=== PATIENT | female | born 1960 | race Caucasian/White ===

== ENCOUNTER 2018-06-26 21:38 | Inpatient (IN) ==
[2018-06-26] MEDS ORDERED: DUONEB (A & A) INH ONE ×3 (21:56→23:04)
[2018-06-26] MEDS ORDERED: SOLU-MEDROL IV ONE (21:56)
--- NOTE | 2018-06-26 22:14 | PROVIDER DOCUMENTATION ---
HPI-Respiratory General - General Chief Complaint: Shortness of Breath Stated Complaint: resp distress Time Seen by Provider: 06/26/18 21:47 Source: patient Allergies/Adverse Reactions: Patient Allergies Allergy/AdvReac Type Severity Reaction Status Date / Time sulfamethoxazole Allergy Intermediate SWELLING Verified 06/26/18 22:54 [From Bactrim] trimethoprim [From Bactrim] Allergy Intermediate SWELLING Verified 06/26/18 22: 54 Home Medications: Home Medication List Medication Instructions Recorded Confirmed Last Taken Type Levothyroxine [Synthroid] 300 microgm PO DAILY 08/09/13 02/28/18 08/27/17 History Sertraline [Zoloft] 50 mg PO QHS 08/22/13 02/28/18 08/27/17 History PRAVAstatin [Pravachol] 20 mg PO QHS 01/01/14 02/28/18 08/27/17 History Gabapentin 600 mg PO TID 05/18/17 02/28/18 08/27/17 History Metformin [Glucophage] 850 mg PO DAILY 08/28/17 02/28/18 08/27/17 History Levofloxacin [Levaquin] 500 mg PO DAILY #5 tab 03/02/18 Unknown Rx Methylprednisolone [Medrol Dosepak] 4 mg PO DIRECTED #1 pkg 03/02/18 Unknown Rx Nicotine Patch [Nicoderm Patch] 21 mg TD DAILY PRN PRN patch.td24 03/02/18 Unknown Rx Omeprazole [Prilosec] 20 mg PO BID #28 cap 03/02/18 Unknown Rx Tiotropium [place] Inhaler 1 puff INH DAILY #1 inhaler 03/02/18 Unknown Rx [Spiriva] - History of Present Illness-Resp Nature of Presenting Problem: reports resp distress for 5 days. worsening today. histoy of copd. admits she has been having rhinorrhea, nasal congestion, cough with productive sputum. and feeling chills. sob. no chest pain. no abd pain. no extremities pain. no fever. Review of Systems - Adult - REVIEW OF SYSTEMS - ADULT Constitutional: reports: see HPI Eyes: reports: no symptoms reported Ears, Nose, Mouth & Throat: reports: no symptoms reported Cardiovascular: reports: no symptoms reported Respiratory: reports: no symptoms reported Gastrointestinal: reports: no symptoms reported Genitourinary: reports: no symptoms reported Musculoskeletal: reports: no symptoms reported Integumentary: reports: no symptoms reported Neurological: reports: no symptoms reported Psychiatric: reports: no symptoms reported Endocrine: reports: no symptoms reported Hematologic/Lymphatic: reports: no symptoms reported Allergic/Immunologic: reports: no symptoms reported All Other Systems: Reviewed and Negative Past History - Adult - PAST MEDICAL HISTORY-ADULT Review of Records: reports: Old Records Reviewed, Nursing Assessment Review, Medications Reviewed, Social history reviewed & non-contributory. Major Childhood Illnesses: reports: denies history Cardiovascular: reports: hyperlipidemia Respiratory: reports: asthma, COPD Gastrointestinal: reports: Crohn's, GERD Obstetrical/Gynecological: reports: denies history Genitourinary: reports: denies history Musculoskeletal: reports: denies history Neurological: reports: denies history Psychiatric: reports: depression Endocrine/Immune: reports: thyroid disorder Other Conditions: reports: denies history - PRIOR SURGERIES/PROCEDURES Surgical/Procedure History: reports: appendectomy, cholecystectomy, hysterectomy , BTL, tonsillectomy, bowel surgery, other - IMMUNIZATION STATUS Childhood Immunizations: See Nurse Assessment Flu Vaccine: See Nurse Assessment - FAMILY HISTORY Family History: reviewed, not pertinent - SOCIAL HISTORY Smoking: less than 1 pack/day Provider spent 3-5 mins advising pt. on dangers of tobacco.: Discussed manners to quit use, and f/u contacts for add'l counseling. Substance Use: none/never Alcohol Use Frequency: never Living Situation: alone Physical Exam-General - PHYSICAL EXAM-ADULT Initial Vital Signs Reviewed: Yes - CONSTITUTIONAL General Appearance: alert, severe distress, obese - EYES Eyes: PERRL/EOMI, pink conjunctivae - HEAD, EARS, NOSE, MOUTH & THROAT HENMT: normocephalic/atraumatic, moist mucous membranes - NECK Neck: non-tender, full range of motion - RESPIRATORY Respiratory: accessory muscle use (pursed lips), wheezing, prolonged expiration , retractions - CARDIOVASCULAR Cardiovascular: normal peripheral pulses, tachycardia - GASTROINTESTINAL (ABDOMEN) Abdominal Exam: normal bowel sounds, non tender, soft - MUSCULOSKELETAL Back Exam: normal inspection, no CVA tenderness, no vertebral tenderness Extremity: normal range of motion, non-tender, normal gait - SKIN Integumentary: warm/dry - NEUROLOGIC Neurologic: grossly normal - PSYCHIATRIC Psych/Mental Status: normal thought content, normal thought process, oriented x 3 Progress - PLAN OF CARE/RESULTS Progress/Plan/Lab Results: Vital Signs - 8 hr 06/26/18 22:00 06/26/18 22:15 06/26/18 23:15 Temperature 97.9 F Pulse Rate 88 87 87 Respiratory Rate 16 23 23 Blood Pressure 141/77 O2 Sat by Pulse Oximetry 91 L 92 L Laboratory Results - last 24 hr 06/26/18 06/26/18 06/26/18 22:35 23:25 23:25 WBC 15.58 H RBC 4.93 Hgb 14.9 Hct 46.7 MCV 94.7 MCH 30.2 MCHC 31.9 L RDW Std Deviation 15.2 H Plt Count 298 MPV 11.3 H Immature Gran % (Auto) 0.4 Neut % (Auto) 70.9 Lymph % (Auto) 19.6 L Coal % (Auto) 8.7 Eos % (Auto) 0.1 Baso % (Auto) 0.3 Immature Gran # (Auto) 0.06 H Neut # (Auto) 11.05 H Lymph # (Auto) 3.05 Coal # (Auto) 1.36 H Eos # (Auto) 0.02 Baso # (Auto) 0.04 PT INR PTT (Actin FS) Specimen Type ARTERIAL Sample Site R RADIAL pH 7.37 pCO2 71 H* pO2 50 L HCO3 34.1 H Base Excess 12.3 H Oxyhemoglobin 83.6 L* ABG O2 Sat (Calculated) 16.7 ABG O2 Saturation 88.3 L ABG Carboxyhemoglobin 5.10 H* ABG Methemoglobin 0.2 Amilcar Test YES A-a O2 Difference 61.0 Total Hemoglobin 14.2 Lactate 1.40 Liter Flow 2.0 Blood Gas Modality CANNULA FiO2 % 28.0 Sodium 137 Potassium 3.9 Chloride 88 L Carbon Dioxide 45 H Anion Gap 4 BUN 22 Creatinine 1.1 H Estimated GFR/1.73 m2 52 BUN/Creatinine Ratio 20 Glucose 124 H Calculated Osmolality 279 Calcium 11.1 H Total Bilirubin 0.26 AST 52 H ALT 36 Alkaline Phosphatase 85 Creatine Kinase 1160 H Creatine Kinase Index 1.9 CK-MB (CK-2) 22.00 H Troponin T Rux-G-Tsrpaofmdck Pept Total Protein 8.3 Albumin 5.1 H Globulin 3.2 Albumin/Globulin Ratio 1.6 06/26/18 06/26/18 06/26/18 23:25 23:25 23:25 WBC RBC Hgb Hct MCV MCH MCHC RDW Std Deviation Plt Count MPV Immature Gran % (Auto) Neut % (Auto) Lymph % (Auto) Coal % (Auto) Eos % (Auto) Baso % (Auto) Immature Gran # (Auto) Neut # (Auto) Lymph # (Auto) Coal # (Auto) Eos # (Auto) Baso # (Auto) PT 11.4 INR 0.77 PTT (Actin FS) 28.0 Specimen Type Sample Site pH pCO2 pO2 HCO3 Base Excess Oxyhemoglobin ABG O2 Sat (Calculated) ABG O2 Saturation ABG Carboxyhemoglobin ABG Methemoglobin Amilcar Test A-a O2 Difference Total Hemoglobin Lactate Liter Flow Blood Gas Modality FiO2 % Sodium Potassium Chloride Carbon Dioxide Anion Gap BUN Creatinine Estimated GFR/1.73 m2 BUN/Creatinine Ratio Glucose Calculated Osmolality Calcium Total Bilirubin AST ALT Alkaline Phosphatase Creatine Kinase Creatine Kinase Index CK-MB (CK-2) Troponin T < 0.010 Wkt-[id number]-[id number] Pept 58 Total Protein Albumin Globulin Albumin/Globulin Ratio Orders Category Date Time Status Cardiac Monitoring DIRECTED Care 06/26/18 21:50 Active Oxygen Therapy- ED Nursing DIRECTED Care 06/26/18 21:50 Active Saline Loc NOW Care 06/26/18 21:50 Active CHEST-2 VIEWS [RAD] Stat Exams 06/26/18 21:50 Taken ABG [RESP] Routine Lab 06/26/18 22:35 Completed CBC WITH ELECTRONIC DIFF [HEME] Stat Lab 06/26/18 23:25 Completed CK PROFILE [SP CHEM] Stat Lab 06/26/18 23:25 Completed COMPREHENSIVE METABOLIC PANEL [CHEM] Stat Lab 06/26/18 23:25 Completed PRO B-NATRIURETIC PEPTIDE Stat Lab 06/26/18 23:25 Completed PROTIME WITH INR [COAG] Stat Lab 06/26/18 23:25 Completed PTT [COAG] Stat Lab 06/26/18 23:25 Completed TROPONIN T Stat Lab 06/26/18 23:25 Completed Albuterol 2.5MG/Ipratrop 0.5MG [Duoneb (A & A)] Med 06/26/18 21:56 Discontinued 3 ml INH NOW ONE Albuterol 2.5MG/Ipratrop 0.5MG [Duoneb (A & A)] Med 06/26/18 22:09 Discontinued 3 ml INH NOW ONE Albuterol 2.5MG/Ipratrop 0.5MG [Duoneb (A & A)] Med 06/26/18 23:04 Discontinued 3 ml INH NOW ONE Levofloxacin 750 mg/D5w [Levaquin 750 mg/D5w] Med 06/26/18 23:29 Discontinued 750 mg in 150 ml IV NOW Methylprednisolone Sod Succ [Solu-Medrol] Med 06/26/18 21:56 Discontinued 80 mg IV NOW ONE Aerosol Treatments Routine Oth 06/26/18 21:56 Completed Aerosol Treatments Routine Oth 06/26/18 22:09 Completed Aerosol Treatments Routine Oth 06/26/18 23:04 Completed Aerosol Treatments Stat Oth 06/26/18 21:56 Completed Aerosol Treatments Stat Oth 06/26/18 22:09 Completed Aerosol Treatments Stat Oth 06/26/18 23:04 Completed BIPAP Stat Oth 06/26/18 22:57 Active CP/SOB/Palp >45 yrs of Age Stat Oth 06/26/18 21:50 Ordered EKG [EKG] Stat Ther 06/26/18 21:50 Ordered Result Diagrams: 06/26/18 23:25 06/26/18 23:25 - EKG 1 Time of EKG reading by physician:: 23:30 EKG Read and Signed by:: Maliha Jeronimo EKG Interpretation (*Must complete 3 of following elements*): Normal Rate: 82 Rhythm: nsr [place]: normal QRS: normal, other (low voltage qrs) [place] Interval: normal ST Wave: normal - CONSULTS/PCP/HOSPITALIST Notification #1 *Consult/PCP/Hospitalist*: Dr. Magallon Time Discussed: 01:25 (copd exac, elevated ck, acute renal failue.) Consult Disposition: Admit Departure - Departure Date of Disposition Decision: 06/26/18 Time of Disposition Decision: 01:26 DIAGNOSIS: Tobacco use disorder, COPD exacerbation, Acute kidney failure, Elevated CK Disposition: ADMITTED INPATIENT 09 Certified Medical Emergency: Emergent Condition: Stable Referrals and Follow-Ups: Richardson Bianchi MD [Primary Care Provider] - Discharge Education: Steps to Quit Smoking, [id number] - Critical Care Note This patient required my direct & personal management of CC.: No Attestation - Physician/ BEATRIZ Attestation Patient care was provided by Advanced Practice Provider:: No The physician spent face to face time with patient:: Yes Advanced Practice Provider documentation review:: Supervising physician onsite and consulted in the evaluation and care of this patient. The physician did have a face to face encounter with the patient.
[2018-06-26 22:44] LABS: ALLEN TEST YES; BE 12.3 mmoll (-3.0-3.0); BLOOD TYPE ARTERIAL; HCO3-(ACT) 34.1 mmoll (20.0-26.0); METHB 0.2 % (0.0-1.5); O2(CT) 16.7 mL/dL (15.0-23.0); PO2(98.6) 50 mmHg (60-100); SAMPLE BLOOD; SAO2 88.3 % (95.0-100.0); THB 14.2 g/dL (11.5-17.4); pH(98.6) 7.37 (7.35-7.45)
[2018-06-26 22:45] LABS: MODALITY CANNULA; O2HB 83.6 % (95.0-99.0); PCO2(98.6) 71 mmHg (35-45)
[2018-06-26] MEDS ORDERED: LEVAQUIN 750 MG/D5W 750 MG/150 ML IVPB IV ONE (23:29)
[2018-06-27 00:14] LABS: BASO# 0.04 X1000 (0.0-0.2); BASO% 0.3 % (0.0-0.8); EOS# 0.02 X1000 (0.0-0.7); EOS% 0.1 % (0.0-10.0); HEMATOCRIT 46.7 % (37.0-47.0); HEMOGLOBIN 14.9 g/dL (12.0-16.0); IMM GRAN# 0.06 X1000 (0.0-0.04); IMM GRAN% 0.4 % (0.0-0.5); LYMPH# 3.05 X1000 (1.2-3.4); LYMPH% 19.6 % (20.5-51.1); MCH 30.2 PG (27-31); MCHC 31.9 g/dL (33-37); MCV 94.7 FL (81-99); MONO# 1.36 X1000 (0.11-0.59); MONO% 8.7 % (1.7-9.3); MPV 11.3 FL (7.4-10.4); NEUT# 11.05 X1000 (1.4-6.5); NEUT% 70.9 % (42.2-75.2); PLT 298 X1000 (130-400); RBC 4.93 XMIL (4.2-5.4); RDW 15.2 % (11.5-14.5); WBC 15.58 X1000 (4.8-10.8)
[2018-06-27 00:25] LABS: PROTIME 11.4 Seconds (11.0-16.0)
[2018-06-27 00:34] LABS: ALB/GLOB RATIO 1.6; ALBUMIN 5.1 g/dL (3.5-5.0); CALCIUM 11.1 mg/dL (8.8-10.2); CREATININE 1.1 mg/dL (0.5-0.9); INR 0.77; POTASSIUM 3.9 mmol/L (3.5-5.1); TOTAL BILIRUBIN 0.26 mg/dL (0.20-1.00); TOTAL PROTEIN 8.3 g/dL (6.3-8.3)
[2018-06-27 00:49] LABS: CK INDEX 1.9 (0.0-2.5)
[2018-06-27 05:47] LABS: ALLEN TEST YES; BE 9.7 mmoll (-3.0-3.0); BLOOD TYPE ARTERIAL; HCO3-(ACT) 32.3 mmoll (20.0-26.0); METHB 0.5 % (0.0-1.5); O2(CT) 18.5 mL/dL (15.0-23.0); O2HB 90.8 % (95.0-99.0); PO2(98.6) 64 mmHg (60-100); SAMPLE BLOOD; SAO2 92.9 % (95.0-100.0); THB 14.5 g/dL (11.5-17.4); pH(98.6) 7.33 (7.35-7.45)
[2018-06-27 05:49] LABS: MODALITY BI PAP
[2018-06-27 05:52] LABS: PCO2(98.6) 74 mmHg (35-45)
--- NOTE | 2018-06-27 06:07 | Diag Imaging Result Doc PS360 ---
EXAM: CT ANGIOGRM PULMONARY ARTERIES HISTORY: Dsypnea,Hypoxia TECHNIQUE: CT chest with intravenous contrast. Pulmonary arterial protocol with MIP images. COMPARISON: 08/28/2017 FINDINGS: There is suboptimal opacification of the pulmonary arteries. However, there are no large central filling defects in the pulmonary arteries or their proximal branches. No thoracic aortic aneurysm or dissection. No cardiomegaly. No pleural effusions. There are small mediastinal nodes. Several right hilar and subcarinal lymph nodes are calcified and there are scattered granuloma. There is an irregular right upper lobe nodule measuring approximately 11 x 15 mm. This has an appearance similar to the prior exam. Mild emphysematous changes are present in the upper lungs. No consolidation. Tiny infiltrates or atelectasis in the lower lungs. Limited images through the upper abdomen reveal an enlarged liver with fatty infiltration. IMPRESSION: 1.Stable right upper lobe nodule 2.There is evidence of a prior granulomatous infection. Minimal basilar atelectasis versus tiny infiltrates. 3.Mild emphysema 4.Hepatomegaly with fatty infiltration 5.No pulmonary emboli 6.A preliminary report was given at 4:42 AM This exam was performed using automated exposure control, adjustment of mA or kV according to patient size, and/or use of iterative reconstruction technique. Electronically signed by Karl Wheeler 06/27/2018 6:05 AM
[2018-06-27] MEDS ORDERED: DUONEB (A & A) INH PRN (06:12)
[2018-06-27] MEDS ORDERED: TYLENOL PO PRN (06:12)
[2018-06-27] MEDS ORDERED: ZOFRAN IV PRN (06:12)
[2018-06-27] MEDS: ZOSYN 3.375 GM in NS 50 ML IV SCH ×4 (06:20→19:19)
--- NOTE | 2018-06-27 06:56 | EKG Report ---
Test Performed on : 06/26/2018 11:27:22 PM Test Reason : copd Blood Pressure : / mmHG Vent. Rate : 082 BPM Atrial Rate : 082 BPM P-R Int : 136 ms QRS Dur : 090 ms QT Int : 394 ms P-R-T Axes : 070 -23 086 degrees QTc Int : 460 ms Normal sinus rhythm. Low voltage QRS Cannot rule out Anterior infarct , age undetermined Abnormal ECG When compared with ECG of 28-FEB-2018 14:01, ST no longer depressed in Inferior leads Nonspecific T wave abnormality, worse in Lateral leads Unconfirmed Result
[2018-06-27] MEDS: HUMALOG SUBQ SCH ×4 (07:00→21:27)
[2018-06-27] MEDS: DUONEB (A & A) INH SCH ×5 (07:15→23:30)
--- NOTE | 2018-06-27 07:18 | Diag Imaging Result Doc PS360 ---
EXAM: CHEST-2 VIEWS HISTORY: copd TECHNIQUE: Chest two views COMPARISON: 02/28/2018 FINDINGS: The lungs are well expanded. The heart is not enlarged. The vessels are not distended. There are no infiltrates. No pleural effusions. There is a granuloma in the lower right lung. IMPRESSION: No acute abnormality. Electronically signed by Karl Wheeler 06/27/2018 7:15 AM
[2018-06-27 07:26] LABS: HEMOGLOBIN A1C 6.1 % (4.8-6.0)
[2018-06-27] MEDS ORDERED: SYNTHROID PO ONE (08:53)
[2018-06-27] MEDS: LOVENOX SUBQ SCH (09:50)
[2018-06-27 09:55] LABS: CALCIUM 9.8 mg/dL (8.8-10.2); POTASSIUM 5.4 mmol/L (3.5-5.1)
[2018-06-27 10:25] LABS: CK INDEX 2.1 (0.0-2.5); CK-MB 26.98 ng/mL (0.0-5.0)
--- NOTE | 2018-06-27 12:48 | HISTORY AND PHYSICAL ---
PRIMARY CARE PHYSICIAN: Previously Dr. Richardson Bianchi, though the patient has recently switched, from what I understand, is Dr. Browne, though has not had her initial appointment with her as of yet. DATE AND TIME: 06/27/2018 AT 0300. CHIEF COMPLAINT: Shortness of breath. HISTORY OF PRESENT ILLNESS: Ms. Ko is a 57-year-old obese female who presented to the ER today with worsening shortness of breath for approximately 5 days which did become much worse today. The patient does have a history of COPD and is oxygen dependent on home oxygen with nasal cannula at 2 L. She does report that she has had some rhinorrhea, nasal congestion, a productive cough with yellow to white thick colored sputum. She also reports that she has had some chills. Also with her worsening shortness of breath, she has had some episodes of dizziness and feeling lightheaded. The patient reports that she is having to prop up to sleep at night and has been waking up short of breath. She also reports that she has been having difficulty sleeping and only sleeps approximately 2 hours at a time. She does report some swelling in her bilateral arms and legs, though the patient does not have any pitting edema noted at this time. She denies any chest pain, nausea, vomiting, or diarrhea. She denies any dysuria or urinary frequency. Upon evaluation in the ER, she was noted to have some leukocytosis with white blood cell count of 15,580. She was also noted to have some hypercapnia with her pCO2 on her arterial blood gases being 71 with a pO2 of 50 and an O2 saturation of 88.3. The patient's carboxyhemoglobin was also elevated at 5.1, though she does report at this time that she does smoke 1/2 pack per day. The patient was given DuoNeb treatments, IV Solu Medrol and IV Levaquin in the ER. Chest x-ray did show no acute abnormality, though given her symptoms, we did decide to do a pulmonary arteriogram which did show that she had a stable right upper lobe nodule. She did have minimal basilar atelectasis versus tiny infiltrates as well as hepatomegaly and fatty infiltration of the liver. Given these findings, the patient will be admitted for COPD exacerbation, hypercapnic respiratory failure and pneumonia. REVIEW OF SYSTEMS: A 14-point review of systems was conducted with the patient, and all were negative except for pertinent positives mentioned in the above HPI. PAST MEDICAL HISTORY: 1. Hyperlipidemia. 2. Questionable history of diabetes mellitus. 3. COPD, oxygen dependent, on home O2 with nasal cannula at 2 L. 4. Asthma. 5. Crohn's disease. 6. Gastroesophageal reflux disease. 7. Depression. 8. Hypothyroidism. 9. Restless leg syndrome. PAST SURGICAL HISTORY: 1. Appendectomy. 2. Cholecystectomy. 3. Hysterectomy. 4. Bilateral tubal ligation. 5. Partial colectomy. 6. Right breast biopsy. 7. Thyroidectomy. FAMILY HISTORY: Positive for her mother having a history of COPD and congestive heart failure. Her father had COPD and pancreatic cancer. She does have 2 sisters and 1 brother, all 3 of which have diabetes mellitus, though her brother does have a history of heart disease and colon cancer. SOCIAL HISTORY: The patient states that she currently lives alone. She is disabled secondary to her COPD. She denied any alcohol or illicit drug use, though does have a longstanding history of greater than 40 years of nicotine dependency. She did previously smoke a pack of cigarettes a day, though states she has cut this back to 1/2 pack per day. ALLERGIES: The patient has allergies to Bactrim. HOME MEDICATIONS: We are awaiting the patient's home medications to be updated and verified. The patient is unable to do so. We will try to contact her pharmacy to get an accurate medication list. DIAGNOSTIC DATA: White blood cell count is 15,580, hemoglobin 14.9, hematocrit 46.7, platelet count is 298. PT is 11.4. INR is 0.77. PTT is 28. Sodium is 137, potassium 3.9, chloride 88, serum bicarb is 45, BUN is 22, creatinine 1.1, with a GFR of 52, glucose 124, calcium 11.1. Liver function tests are within normal limits except for AST slightly elevated at 52. CK was 1160. CK index was 1.9. CKMB is 22. Troponin is less than 0.01. ProBNP is 58. Arterial blood gases were obtained on nasal cannula at 28% FiO2 and had a pH of 7.37, pCO2 of 71, pO2 of 50, HCO3 of 34.1 with a base excess of 12.3, oxyhemoglobin was 83.6 with an O2 saturation of 88.3 and a carboxyhemoglobin of 5.10. EKG showed normal sinus rhythm at a rate of 82 with a QTC of 460. Chest x-ray showed no acute abnormality. CT angiogram of pulmonary artery showed a stable right upper lobe nodule. There was evidence of prior granulomatous infection. There was also minimal basilar atelectasis versus tiny infiltrates. Mild emphysema. Hepatomegaly with fatty infiltration. There was no pulmonary emboli noted. PHYSICAL EXAMINATION: VITAL SIGNS: Temperature is 97.9, heart rate 73, respirations 20, blood pressure 144/68, oxygen saturation is 95% on BiPAP at 50% FiO2. GENERAL: Ms. Ko is an obese female. Upon my examination, she was sitting on the ER stretcher. At this time, she did not have her BiPAP on and did appear to be slightly dyspneic as well as slightly tachypneic, though she was able to speak in full sentences and answer questions. Though she is somewhat of a poor historian, she was able to answer questions appropriately and follow commands. HEENT: Head is atraumatic and normocephalic. Pupils are equal, round and reactive to light, were 3 mm bilaterally and brisk. Oral mucosa was moist. Oropharynx was clear. NECK: Supple. Trachea midline. No overt JVD noted. CARDIOVASCULAR: The patient has S1 and S2 present. No murmurs, gallops or rubs appreciated, with a regular rate and rhythm. PULMONARY: The patient has symmetrical chest expansion bilaterally, though she does have diminished lung sounds noted in bilateral full hurtado. She sounds very tight and did have expiratory wheeze noted. ABDOMEN: Soft, did appear a little distended, though the patient does have a protuberant abdomen noted. She was nontender upon palpation. Bowel sounds were present in all 4 quadrants and were normoactive. EXTREMITIES: No cyanosis or edema noted. The patient did have clubbing noted to nail beds of bilateral hands. Pulse, motor and sensory were intact in all extremities. Radial pulses and pedal pulses were 2+ bilaterally. Capillary refill was less than 3. INTEGUMENTARY: The patient's skin was pink, warm and dry. NEUROLOGICAL: The patient was alert and oriented to person, place, time and situation. There were no focal neurological deficits noted. ASSESSMENT AND PLAN: 1. Acute hypercapnic and hypoxemic respiratory failure. This is likely secondary to a combination of COPD exacerbation, possible pneumonia and obesity hypoventilation syndrome. The patient has been placed on BiPAP at this time, and her respiratory status is improving. We will recheck an arterial blood gas later on this morning. She will be on continuous pulse oximetry, and we will monitor her respiratory status closely. 2. Chronic obstructive pulmonary disease exacerbation. The patient is normally oxygen dependent at home with nasal cannula at 2 L, though at this time, as previously mentioned, we have placed her on BiPAP. We will continue her on scheduled DuoNeb treatments q.4 hours as well as aggressive pulmonary toilet, incentive spirometry, and IV Solu Medrol 40 mg q.12 hours, and we will continue to follow. 3. Possible pneumonia. The patient did have leukocytosis. She has been reporting productive cough with yellow to whitish thick colored sputum as well as chills. CT angiogram of pulmonary arteries did show minimal basilar atelectasis versus tiny infiltrates. Given this, we have obtained blood cultures and sputum culture and have placed her with antibiotic coverage of Zosyn. We will continue to follow. 4. Obesity hypoventilation syndrome. 5. History of hypothyroidism. We have placed a request for the patient's home medications to be reconciled. We are awaiting this at this time. Once we have obtained her levothyroxine dosage, we will continue this. We have ordered a TSH as well. 6. Questionable history of diabetes mellitus. The patient denies that she has diabetes, though it looks as though she was previously taking metformin in the past. We have ordered a hemoglobin A1c as well as pattern fingerstick blood sugars. She will be receiving IV steroids, and given this, we have placed an order for Lispro insulin per low dose sliding scale if needed. 7. DVT prophylaxis will be provided with Lovenox 40 mg subcutaneously q.24 hours. 8. Nicotine dependence. We did discuss for several minutes with the patient the importance of her needing to quit smoking given her history of COPD as well as her current respiratory status. The patient did state her verbal understanding, and we will continue to pastoral counselor the patient on this during her admission and upon discharge. 9. Possible sleep apnea. The patient has been reporting respiratory symptoms at night as well as sleep disturbances. If possible, the patient may need to be set up for outpatient sleep study upon discharge. The patient has been placed on the Medical Floor with telemetry. She will have vital signs q.4 hours. We will do continuous pulse oximetry. We will do strict intake and output. We will repeat BMP later on this morning. We will also continue with a series of cardiac enzymes given that the patient's CK was elevated, though she is denying any chest pain at this time. Further orders and recommendations pending hospital course, diagnostic studies and physician evaluation. Dictated by GIUSEPPE Yi for Cole Cervantes MD cc: Cole Cervantes MD [facility]
[2018-06-27] MEDS: PERCOCET-5 PO PRN (15:04)
[2018-06-27 15:09] LABS: ALLEN TEST YES; BE 11.2 mmoll (-3.0-3.0); BLOOD TYPE ARTERIAL; HCO3-(ACT) 33.4 mmoll (20.0-26.0); METHB 0.9 % (0.0-1.5); O2(CT) 16.4 mL/dL (15.0-23.0); SAMPLE BLOOD; SAO2 89.2 % (95.0-100.0); THB 13.4 g/dL (11.5-17.4); pH(98.6) 7.43 (7.35-7.45)
[2018-06-27] MEDS: SOLU-MEDROL IV SCH ×3 (15:11→23:42)
[2018-06-27 15:15] LABS: MODALITY CANNULA; O2HB 87.3 % (95.0-99.0); PCO2(98.6) 57 mmHg (35-45); PO2(98.6) 47 mmHg (60-100)
[2018-06-27 16:32] LABS: CK-MB 38.82 ng/mL (0.0-5.0)
--- NOTE | 2018-06-27 23:55 | PULMONOLOGY CONSULTATION ---
DATE: 06/27/2018 REQUESTING PHYSICIAN: Dr. Michelle. REASON FOR CONSULTATION: COPD. HISTORY OF PRESENT ILLNESS: Ms. Ko is a 57-year-old white female with obesity, COPD, continued tobacco use, who reports over the last 5 days she has had increased cough, increased sinus drainage, increasing wheezing, with increasing shortness of breath. She may have had chills or fevers, but not to the point that she checked her temperature. Her dyspnea became severe, and she presented to the emergency room. White blood count was elevated and CT pulmonary angiogram was performed, which revealed a stable nodule in the right upper lobe, which has been present since July 2017, emphysematous changes, fatty liver. Due to the shortness of breath despite treatment in the emergency room, the patient was admitted to the hospital. PAST MEDICAL HISTORY/PROBLEM LIST: 1. Morbid obesity. 2. COPD. 3. Ongoing tobacco use. 4. Status post bowel resection for presumed Crohn's disease. 5. History of depression. 6. Hypothyroidism. 7. Gastroesophageal reflux disease. 8. Status post appendectomy. 9. Status post cholecystectomy. 10. Status post biopsy of the right breast, which she reports was benign. 11. Status post bilateral tubal ligation. 12. Status post hysterectomy. SOCIAL HISTORY: The patient lives by herself. She continues to smoke, but reports she is cutting back. Denies alcohol use. FAMILY HISTORY: Positive for heart failure, pancreatic cancer, COPD, diabetes mellitus, heart disease, and colon cancer. REVIEW OF SYSTEMS: As noted in the HPI. PHYSICAL EXAMINATION: General: Reveals an obese white female, with audible rhonchi and wheezing. Vital Signs: Heart rate 73, respiratory rate 18, with mild increased work of breathing. Oxygen saturation 95% on 4 L per nasal cannula. HEENT: Pupils are equal and reactive. Oropharynx is clear. Neck: Supple. Chest: Reveals diffuse wheezing bilaterally. Cardiac: S1-S2. Abdomen: Obese and soft. Extremities: Revealed trace edema. LABORATORIES: CT scan as per HPI. Arterial blood gas reveals pH 7.43, pCO2 of 57, PO2 of 47. Sodium 137, potassium 5.6, chloride 89, bicarbonate 33, BUN 20, creatinine 1.0. TSH markedly elevated at 107. IMPRESSION: 1. A 59-year-old with chronic obstructive pulmonary disease. 2. Chronic obstructive pulmonary disease exacerbation. 3. Acute hypoxemic respiratory failure. 4. Chronic hypercapnic respiratory failure. 5. Status post thyroidectomy, with probable noncompliance with thyroid medicine. RECOMMENDATIONS: 1. Continue oxygen for hypoxemic respiratory failure. Can cycle BiPAP as needed, and at bedtime. 2. Agree with steroids and antibiotics as you are doing. 3. Agree with thyroid replacement. 4. Smoking cessation was discussed at length with the patient. She reports she will quit, and will not restart smoking when she returns home. cc: Lawson Bell MD
[2018-06-28] MEDS: ZOSYN 3.375 GM in NS 50 ML IV SCH ×4 (00:35→17:00)
[2018-06-28 01:09] LABS: CK INDEX 1.8 (0.0-2.5); CK-MB 56.34 ng/mL (0.0-5.0)
[2018-06-28] MEDS: DUONEB (A & A) INH SCH ×7 (03:58→23:15)
[2018-06-28 04:19] LABS: ALLEN TEST YES; BE 11.3 mmoll (-3.0-3.0); BLOOD TYPE ARTERIAL; HCO3-(ACT) 33.7 mmoll (20.0-26.0); METHB 0.8 % (0.0-1.5); O2(CT) 19.1 mL/dL (15.0-23.0); O2HB 96.7 % (95.0-99.0); PO2(98.6) 234 mmHg (60-100); SAMPLE BLOOD; SAO2 97.7 % (95.0-100.0); THB 13.7 g/dL (11.5-17.4); pH(98.6) 7.26 (7.35-7.45)
[2018-06-28 04:27] LABS: PCO2(98.6) 95 mmHg (35-45)
[2018-06-28 04:28] LABS: MODALITY BI PAP
[2018-06-28] MEDS: LOVENOX SUBQ SCH (05:39)
[2018-06-28] MEDS: HUMALOG SUBQ SCH ×4 (06:13→21:13)
[2018-06-28] MEDS: SYNTHROID PO SCH (06:14)
[2018-06-28] MEDS: PROTONIX IV SCH (06:14)
[2018-06-28] MEDS: SODIUM CHLORIDE 0.9% INJ SCH (06:14)
--- NOTE | 2018-06-28 07:05 | Diag Imaging Result Doc PS360 ---
EXAM: CHEST-PORTABLE HISTORY: dyspnea TECHNIQUE: Portable chest single view COMPARISON: 06/26/2018 FINDINGS: The lungs are well expanded. The heart is not enlarged. The vessels are not distended. There are no infiltrates. No effusion identified. There is a calcified granuloma in the lower right lung. IMPRESSION: No interval change. Electronically signed by Karl Wheeler 06/28/2018 7:02 AM
[2018-06-28 07:42] LABS: BASO# 0.01 X1000 (0.0-0.2); BASO% 0.1 % (0.0-0.8); EOS# 0.05 X1000 (0.0-0.7); EOS% 0.4 % (0.0-10.0); HEMATOCRIT 43.8 % (37.0-47.0); HEMOGLOBIN 13.5 g/dL (12.0-16.0); IMM GRAN# 0.08 X1000 (0.0-0.04); IMM GRAN% 0.6 % (0.0-0.5); LYMPH# 1.41 X1000 (1.2-3.4); LYMPH% 9.9 % (20.5-51.1); MCH 30.1 PG (27-31); MCHC 30.8 g/dL (33-37); MCV 97.6 FL (81-99); MONO# 0.49 X1000 (0.11-0.59); MONO% 3.4 % (1.7-9.3); MPV 11.1 FL (7.4-10.4); NEUT% 85.6 % (42.2-75.2); PLT 293 X1000 (130-400); RBC 4.49 XMIL (4.2-5.4); RDW 15.2 % (11.5-14.5); WBC 14.24 X1000 (4.8-10.8)
[2018-06-28 08:03] LABS: CALCIUM 9.5 mg/dL (8.8-10.2); CREATININE 1.2 mg/dL (0.5-0.9); POTASSIUM 5.3 mmol/L (3.5-5.1)
[2018-06-28 08:29] LABS: ALLEN TEST YES; BE 12.5 mmoll (-3.0-3.0); BLOOD TYPE ARTERIAL; HCO3-(ACT) 34.7 mmoll (20.0-26.0); METHB 0.4 % (0.0-1.5); O2(CT) 19.1 mL/dL (15.0-23.0); O2HB 97.2 % (95.0-99.0); PO2(98.6) 151 mmHg (60-100); SAMPLE BLOOD; SAO2 97.2 % (95.0-100.0); SRATE 20 BPM; THB 13.8 g/dL (11.5-17.4); pH(98.6) 7.31 (7.35-7.45)
[2018-06-28 08:32] LABS: MODALITY BI PAP; PCO2(98.6) 85 mmHg (35-45)
[2018-06-28] MEDS: PERCOCET-5 PO PRN ×2 (09:31→21:12)
[2018-06-28] MEDS: NS 1,000 ML IV SCH (12:51)
[2018-06-28] MEDS: SOLU-MEDROL IV SCH ×2 (12:51→22:43)
--- NOTE | 2018-06-28 15:08 | PROGRESS NOTE ---
DATE: 06/28/2018 SUBJECTIVE: The patient is sitting at the edge of the bed. She complains of pain in her left wrist. OBJECTIVE: Vital Signs: Temperature 98.2 degrees, blood pressure 139/67, heart rate 85, respirations 20, O2 sats 97% on BIPAP. General: This is a morbidly obese female sitting at the edge of the bed in no acute distress. Heart: S1, S2 normal. Regular rate and rhythm. Lungs: Mild expiratory wheezes. Abdomen: Positive bowel sounds. Soft, obese, nontender, nondistended. Extremities: Trace pedal edema. No cyanosis. No calf tenderness. Neurologic : The patient is alert and oriented x3. LABS: White blood cell count 14, hemoglobin 13, hematocrit 43, platelets 293, 000. ABG: PH of 7.3, pCO2 85, PO2 151, bicarb 34, sodium 140, potassium 5.3, chloride 92, CO2 39 , BUN 24, creatinine 1.2, glucose 160, CK 3000. ASSESSMENT AND PLAN: 1. Acute on chronic hypercapnic and hypoxemic respiratory failure. Continue to treat the patient for a COPD exacerbation. Pulmonary is following. 2. Chronic obstructive pulmonary disease exacerbation. Continue with current treatment regimen as directed by the aircraft electrical systems specialist. 3. Rhabdomyolysis. We will start the patient on gentle IV fluid hydration. 4. Hyperkalemia. Will treat the patient's potassium. 5. Acute kidney injury. IV fluids have been initiated. We will monitor the patient's urine output closely. 6. Severe hypothyroidism. Continue on Synthroid. The patient will likely benefit from seeing an vertical mill operator as outpatient. 7. Morbid obesity. Aware. 8. Diabetes mellitus type 2. Continue with sliding scale insulin. 9. Deep vein thrombosis prophylaxis. Continue on Lovenox. cc: Yenny Michelle MD MTDD
--- NOTE | 2018-06-28 20:42 | PULMONOLOGY PROGRESS NOTE ---
DATE: 06/28/2018 SUBJECTIVE: Patient is currently on BiPAP. She does report left arm pain. OBJECTIVE: Vital Signs: The patient has been afebrile over the last 24 hours. Blood pressure 139/67, heart rate 81, respiratory rate 20, oxygen saturation 97%. HEENT: Pupils are equal and reactive. Oropharynx is clear. Neck: Supple. Chest: Reveals prolonged expiratory phase. Cardiac exam: S1-S2. Abdomen: Soft without hepatosplenomegaly. Extremities: Reveal trace edema. LABORATORIES: A 57-year-old with: 1. Chronic obstructive pulmonary disease. 2. Chronic obstructive pulmonary disease exacerbation. 3. Acute hypoxemic respiratory failure. 4. Chronic hypercapnic respiratory failure. 5. Status post thyroidectomy with severe hypothyroidism, likely due to noncompliance. RECOMMENDATIONS: 1. Continue to cycle BiPAP as you are doing. 2. Agree with steroids and antibiotics. 3. Agree with thyroid replacement. 4. Smoking cessation has been strongly encouraged. cc: Lawson Bell MD
[2018-06-29] MEDS: ZOSYN 3.375 GM in NS 50 ML IV SCH ×4 (01:57→17:31)
[2018-06-29] MEDS: DUONEB (A & A) INH SCH ×6 (03:18→23:22)
[2018-06-29 04:58] LABS: ALLEN TEST YES; BE 13.9 mmoll (-3.0-3.0); BLOOD TYPE ARTERIAL; HCO3-(ACT) 35.7 mmoll (20.0-26.0); O2(CT) 17.2 mL/dL (15.0-23.0); O2HB 95.2 % (95.0-99.0); PO2(98.6) 96 mmHg (60-100); SAMPLE BLOOD; SAO2 96.2 % (95.0-100.0); SRATE 20 BPM; THB 12.8 g/dL (11.5-17.4); pH(98.6) 7.32 (7.35-7.45)
[2018-06-29 04:59] LABS: MODALITY BI PAP; PCO2(98.6) 85 mmHg (35-45)
[2018-06-29] MEDS: SYNTHROID PO SCH (06:36)
[2018-06-29] MEDS: PROTONIX IV SCH (06:36)
[2018-06-29] MEDS: LOVENOX SUBQ SCH (06:36)
[2018-06-29] MEDS: SODIUM CHLORIDE 0.9% INJ SCH (06:36)
[2018-06-29] MEDS: PERCOCET-5 PO PRN (06:44)
[2018-06-29] MEDS: HUMALOG SUBQ SCH ×4 (06:47→20:11)
[2018-06-29 07:44] LABS: BASO# 0.01 X1000 (0.0-0.2); BASO% 0.1 % (0.0-0.8); HEMATOCRIT 40.5 % (37.0-47.0); HEMOGLOBIN 12.6 g/dL (12.0-16.0); IMM GRAN# 0.07 X1000 (0.0-0.04); IMM GRAN% 0.6 % (0.0-0.5); LYMPH% 19.7 % (20.5-51.1); MCH 30.4 PG (27-31); MCHC 31.1 g/dL (33-37); MCV 97.8 FL (81-99); MONO% 7.4 % (1.7-9.3); MPV 11.1 FL (7.4-10.4); NEUT# 8.78 X1000 (1.4-6.5); NEUT% 72.2 % (42.2-75.2); PLT 279 X1000 (130-400); RBC 4.14 XMIL (4.2-5.4); WBC 12.16 X1000 (4.8-10.8)
[2018-06-29 08:03] LABS: ALB/GLOB RATIO 1.7; ALBUMIN 4.8 g/dL (3.5-5.0); CALCIUM 9.2 mg/dL (8.8-10.2); CREATININE 1.1 mg/dL (0.5-0.9); MAGNESIUM 2.6 mg/dL (1.5-2.7); PHOSPHORUS 3.5 mg/dL (2.7-4.5); POTASSIUM 4.8 mmol/L (3.5-5.1); TOTAL BILIRUBIN 0.45 mg/dL (0.20-1.00); TOTAL PROTEIN 7.7 g/dL (6.3-8.3)
--- NOTE | 2018-06-29 10:02 | ECHO REPORT ---
ORDER DATE: 06/28/2018 MEASUREMENTS: Left ventricular end-diastolic diameter 4.1, septal thickness 1.3, aortic root 3.2. SUMMARY: 1. Very difficult study for interpretation due to very limited acoustic window quality. Intravenous echocontrast agent Definity was utilized to enhance endocardial definition. 2. Aortic valve is not well demonstrated. Peak gradient across the aortic valve is less than 10 mmHg, thus excluding any significant aortic stenosis. Mitral and tricuspid valves are without obvious structural abnormality. Pulmonic valve is not seen. The aortic root is normal in size. 3. Grossly normal left ventricular dimensions suggested. The left ventricle appears somewhat hyperdynamic with an estimated left ejection fraction of greater than 70%. No obvious wall motion abnormality can be appreciated. The left atrium is mildly enlarged. The right atrium and right ventricle are grossly normal in size. 4. No pericardial effusion. 5. Inferior vena cava appearance suggests normal central venous pressure. cc: MD Yenny Randall MD
[2018-06-29] MEDS: NS 1,000 ML IV SCH ×2 (13:09→22:38)
[2018-06-29] MEDS: SOLU-MEDROL IV SCH (13:10)
--- NOTE | 2018-06-29 18:28 | PULMONOLOGY PROGRESS NOTE ---
DATE: 06/29/2018 SUBJECTIVE: The patient reports she feels markedly improved today. She is off the BiPAP. She is eating without difficulty. She has been moving in her room. OBJECTIVE: Vital Signs: The patient has been afebrile for the last 24 hours. Blood pressure 120/71, heart rate 81, respiratory rate 22, oxygen saturation 92% on 4 L per nasal. HEENT: Pupils are equal and reactive. Oropharynx is clear. Neck: Supple. Chest: Reveals better air flow bilaterally, with decreased wheezing. Cardiac: S1-S2. Abdomen: Obese and soft. Extremities: Reveal trace edema. LABORATORIES: Sodium 139, potassium 4.8, chloride 91, bicarbonate 37, BUN 28, creatinine 1.1, glucose 125. IMPRESSION: A 57-year-old with: 1. Chronic obstructive pulmonary disease exacerbation. 2. Ongoing tobacco use. 3. Acute hypoxemic respiratory failure. 4. Chronic hypercapnic respiratory failure. 5. Status post thyroidectomy, with noncompliance with medications. RECOMMENDATIONS: 1. Continue to cycle BiPAP at bedtime and as needed. 2. Agree with steroids and antibiotics. 3. Agree with thyroid replacement. 4. Smoking cessation has been discussed and strongly encouraged. 5. If the patient continues to improve, she could be discharged on 06/30/2018. cc: Lawson Bell MD
--- NOTE | 2018-06-29 18:44 | PROGRESS NOTE ---
DATE: 06/29/2018 SUBJECTIVE: The patient is sitting at the edge of the bed. She states that she feels a little bit better. She states that she wants to go home. OBJECTIVE: Vital Signs: Temperature 98.6 degrees, blood pressure 112/71, heart rate 82, respirations 20, oxygen saturation 100% on 4 L nasal cannula. General: This is a chronically ill- appearing overweight female, sitting at the edge of the bed, in no acute distress. Heart: S1, S2 normal. Regular rate and rhythm. Lungs: Equal air entry bilaterally. Mild expiratory wheezes bilaterally. Abdomen: Positive bowel sounds. Soft, obese, nontender, nondistended. Extremities: No edema. No cyanosis. No calf tenderness. Neurologic: The patient is alert and oriented x3. LABS: White blood cell count 12, hemoglobin 12, hematocrit 40, platelets 279, 000. ABG: pH of 7.32, pCO2 85, PO2 96, bicarb 35. Sodium 139, BUN 28, creatinine 1.1, glucose 117, potassium 4.8, AST 105, ALT 64, alkaline phosphatase 76. ASSESSMENT AND PLAN: 1. [id number] hypercapnic and hypoxemic respiratory failure. Continue with BiPAP, bronchodilator therapy, and supplemental oxygen. 2. Chronic obstructive pulmonary disease exacerbation. Continue on the current treatment regimen. 3. Rhabdomyolysis. Continue with gentle IV fluid hydration. 4. Acute kidney injury. Improved. 5. Severe hypothyroidism. Continue on Synthroid. 6. Diabetes mellitus type 2. Continue with sliding scale insulin. 7. Morbid obesity. Aware. 8. Tobacco dependence. The patient has been counseled about smoking cessation. 9. Deep vein thrombosis prophylaxis. Continue on Lovenox. cc: Yenny Michelle MD [facility]
[2018-06-30] MEDS: SOLU-MEDROL IV SCH ×2 (00:20→11:47)
[2018-06-30] MEDS: ZOSYN 3.375 GM in NS 50 ML IV SCH ×3 (00:21→11:47)
[2018-06-30] MEDS: DUONEB (A & A) INH SCH ×4 (03:36→15:12)
[2018-06-30] MEDS: LOVENOX SUBQ SCH (05:49)
[2018-06-30] MEDS: PROTONIX IV SCH ×2 (05:49→06:18)
[2018-06-30] MEDS: SYNTHROID PO SCH ×2 (05:49→06:18)
[2018-06-30] MEDS: HUMALOG SUBQ SCH ×2 (06:18→11:56)
[2018-06-30 07:16] LABS: BASO# 0.01 X1000 (0.0-0.2); BASO% 0.1 % (0.0-0.8); HEMATOCRIT 41.2 % (37.0-47.0); HEMOGLOBIN 12.7 g/dL (12.0-16.0); IMM GRAN# 0.08 X1000 (0.0-0.04); IMM GRAN% 0.8 % (0.0-0.5); LYMPH# 1.82 X1000 (1.2-3.4); LYMPH% 18.7 % (20.5-51.1); MCH 30.2 PG (27-31); MCHC 30.8 g/dL (33-37); MCV 98.1 FL (81-99); MONO# 0.59 X1000 (0.11-0.59); MONO% 6.1 % (1.7-9.3); NEUT# 7.24 X1000 (1.4-6.5); NEUT% 74.3 % (42.2-75.2); PLT 263 X1000 (130-400); RDW 15.1 % (11.5-14.5); WBC 9.74 X1000 (4.8-10.8)
[2018-06-30 07:52] LABS: CALCIUM 8.8 mg/dL (8.8-10.2); CREATININE 1.1 mg/dL (0.5-0.9); POTASSIUM 4.8 mmol/L (3.5-5.1)
[2018-06-30 08:20] VITALS: BP 114/77
[2018-06-30] MEDS: NS 1,000 ML IV SCH (10:30)
[2018-06-30] MEDS: PERCOCET-5 PO PRN (11:52)
--- NOTE | 2018-07-06 09:41 | DISCHARGE SUMMARY ---
ADMISSION DATE: 06/27/2018 DISCHARGE DATE: 06/30/2018 FINAL DISCHARGE DIAGNOSES: 1. Acute on chronic hypercapnic and hypoxemic respiratory failure. 2. Chronic obstructive pulmonary disease exacerbation. 3. Rhabdomyolysis. 4. Acute kidney injury. 5. Severe hypothyroidism secondary to medication noncompliance. 6. Diabetes mellitus type 2. 7. Morbid obesity. 8. Tobacco dependence. CONSULTATIONS: Pulmonary consultation with Dr. Bell. IMAGING: Chest x-ray performed on 06/27/2018 that revealed no acute abnormality. HOSPITAL COURSE: Ms. Ko is a 57-year-old female with a history of COPD, hypothyroidism, status post thyroidectomy, and morbid obesity, who presented to the ER with a chief complaint of shortness of breath. On admission, a pulmonary arteriogram was done that revealed a stable right upper lobe nodule as well as atelectasis and emphysema. The patient was also noted to have fatty infiltration of the liver. The patient was admitted with a diagnosis of acute on chronic hypercapnic and hypoxemic respiratory failure based on her presentation and ABG results. The patient was started on IV steroids, bronchodilator therapy, and antibiotic therapy. She was also placed on BiPAP. The patient was noted to be severely hypothyroid with a TSH of 107.8 and a free T4 of 0.24. It was suspected that the patient was not taking her Synthroid as directed, of which she is on the maximum dosage available. Slowly over the course of the hospitalization, the patient's respiratory status returned to her baseline level of function. The patient was again counseled about the importance of medication compliance and weight loss. The patient continued to improve clinically, and was cleared for discharge home on 06/30/2018. DISCHARGE MEDICATIONS: 1. Synthroid 300 mcg oral daily. 2. Prednisone 10 mg p.o. daily taper. 3. Pravachol 20 mg p.o. at bedtime. 4. Albuterol inhaler 2 puffs every 6 hours p.r.n. for shortness of breath. 5. DuoNeb 3 mL inhaled every 4 hours p.r.n. for shortness of breath. 6. Zoloft 50 mg p.o. at bedtime. 7. Neurontin 600 mg p.o. 3 times a day. 8. Levaquin 500 mg p.o. daily x5 days. 9. Metformin 850 mg p.o. daily. 10. Prilosec 20 mg p.o. twice a day. 11. Spiriva 18 mcg inhaled daily. DISCHARGE DIET: Low-sodium, 1800 ADA diet. ACTIVITY: As tolerated. FOLLOWUP INSTRUCTIONS: The patient will need to follow up with Dr. Bell as scheduled by his clinic. cc: Yenny Michelle MD
== END 2018-06-30 18:16 | disposition home or self-care (01) | DRG 189 ==
LOC: ED 21:38 → SUATTDRO 06-27 04:46 → EDIPHOLD 06-27 04:46 → 3N 06-27 13:07
PROVIDERS: ATTEND Internal Medicine
CPT/HCPCS: 71010; 71020; 71045; 71046; 71275; 80048; 80053; 82550; 82553; 82805; 82948; 83036; 83735; 83880; 84100; 84439; 84443; 84484; 85025; 85610; 85730; 87040; 93005; 93306; 94640; 94660; 94761; 96365; 96367; 96372; 96375; 99285; A9270; C8929; C9113; J1650; J1815; J1956; J2543; J2920; J2930; J7030; Q9957; Q9967; S0164; XXXXX